=== PATIENT | male | born 1995 | race Caucasian/White ===

== ENCOUNTER 2018-06-13 11:52 | Emergency (ER) | payer SELFPAY ==
[~2018-06-13] VITALS: Ht 165.1 cm; Wt 84.1 kg
[2018-06-13 12:08] VITALS: BP 144/95; Ht 165.1 cm; Wt 84.1 kg
[2018-06-13] MEDS ORDERED: KEFLEX500 MG PO (13:32)
[2018-06-13] MEDS ORDERED: SULFAMETHOXAZOL1 TA3 PO (13:32)
[2018-06-13] MEDS ORDERED: BENADRYL50 MG PO (13:32)
== END 2018-06-13 13:48 | disposition home or self-care (01) ==
LOC: D.ER 11:52
DX: L03.213 Periorbital cellulitis (principal)